=== PATIENT | male | born 1970 | race Caucasian/White ===

== ENCOUNTER 2017-01-03 23:16 | Emergency (ER) | payer MEDICAID, OTHER ==
[~2017-01-03] VITALS: Ht 188 cm; Wt 98.2 kg
[2017-01-03 23:24] VITALS: BP 120/79; PULSE 74; RESP 20; O2SAT 97
[2017-01-03] MEDS ORDERED: Lidocaine 1% 50 mL Inj NERVEBLOCK ONE (23:35)
[2017-01-03] MEDS ORDERED: _oxyCODONE/APAP 5-325 mg Tablet PO PRN (23:35)
[2017-01-03] MEDS ORDERED: Amoxicillin-Clav 875-125 mg Tablet PO ONE (23:35)
[2017-01-03] MEDS ORDERED: Ampicillin-Sulbactam Inj 3,000 MG in 0.9% Sodium Chloride 100 ML IV ONE (23:55)
--- NOTE | 2017-01-04 00:22 | ED.REPORT ---
HPI-Dental/Mouth Prob Date of Service Jan 04, 2017 ED Provider: Sonido Jacinto DO A 46 year old male with a history of left arm blood clot and previous methamphetamine use presents to the ED with mouth pain onset a couple of days ago. The patient also reports swelling to the roof of his mouth. He denies fever , nausea, vomiting, or other symptoms at this time. The patient took Cephalexin at onset and attempted to puncture the swelling last night with a needle, with no relief. 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 Nursing Notes Stated Complaint: DENTAL PAIN Chief Complaint: Dental Nursing Notes Reviewed: Yes Allergies: Coded Allergies: No Known Allergies (Unverified Allergy, Unknown, 01/03/17) General Time Seen by MD: 23:34 Chief Complaint Mouth pain Hx Obtained From: Patient Arrived By: Walk-in Onset Occurred: 2 days ago Symptom Duration: Since onset Quality: Painful Severity: Current: Moderate Severity: Maximum: Moderate Associated with: Denies: Fever Pertinent Negative: Relieved by nothing Recent Healthcare: No recent doctor visit Past Medical History Past Medical History Left arm blood clot Past Surgical History None reported Smoking History Unknown if Ever Smoker Social History Drug Use: In recovery, Meth Ambulatory Status Independent Review of Systems Review of Systems Note: + Swelling to the roof of mouth Constitutional: Denies: Fever Ears / Nose / Throat: Reports: Mouth pain Respiratory: Denies: Non-productive cough, Shortness of breath GI: Denies: Diarrhea, Nausea, Vomiting Complete sys rev & neg: except as marked. Physical Exam Initial Vital Signs Vital Signs (First) Date Time Temp Pulse Resp B/P Pulse Ox O2 Delivery O2 Flow Rate FiO2 01/03/17 23:24 35.9 74 20 120/79 97 Room Air Initial VS: Reviewed Head / Eyes: Atraumatic, Normocephalic Respiratory: No respiratory distress Skin: Warm, Dry, No cyanosis Neurologic: Alert, Oriented, Nonfocal Psychiatric: Mood/affect normal, Behavior normal, Normal thought content ENT: Airway patent, Mucous membranes moist Dental / Gums: Positive: Dental caries present (Diffuse) Large periapical abscess posterior to fractured right central incisor Neck: Supple, Full range of motion General/Constitutional: Awake, Alert, No acute distress Procedures Incision & Drainage Abscess Time: 23:45 Procedure Performed by: ED physician Consent / Setup / Site Prep: Consent from patient, Time-out performed, Hand hygiene observed, Stand sterile technique Location of Abscess: Large periapical abscess posterior to fractured right central incisor Local Anesthesia: Lidocaine 1% Incised Abscess with Scalpel: #11 Pus Drained: Medium, Purulent discharge Irrigation: No Post-Procedure / Complications: Culture obtained, No complications, Condition improved, Tolerated procedure well, Patient stable Re-Eval/Medical Decision Source of Hx: Old records Re-Evaluation/Progress : Time of Eval: 23:45 Patient Status: Condition improved Re-Evaluation/Progress Note: I&D performed. Discussed with patient diagnosis and plan for discharge. Follow-up and return to the ER instructions given. Patient agrees with plan for care and all questions were addressed. Counseled Regarding: Diagnosis, Need for follow-up, When/why to return to ED Discharge & Departure Primary Impression: Dental abscess Disposition: Home Discharge Condition All VS Reviewed: Yes Condition: Improved Patient Instructions: Dental Abscess (ED) Additional Instructions: I recommend that you see a dentist as soon as possible. Your have an impressive dental abscess that we drained. Take Augmentin twice daily for 7 days. Take 1-2 Percocet every 6 hours as needed for pain. Do not drive or drink alcohol or consume acetaminophen will taking the Percocet. I also recommend that you follow up with your primary care physician or the [facility] residency clinic. Do not hesitate to return if any problems or worsening symptoms. Referrals: NOPCP (PCP) [facility] Scribedi Attestation Portions of this note were transcribed by Sofia Cates. I, Dr. Jacinto, personally performed the history, physical exam, and medical decision-making; I reviewed and confirmed the accuracy of the information in the transcribed note. Signed by: Leonel Sweet, 01/04/2017, 01:40 copies to: [facility] Sonido Jacinto DO Jan 04, 2017 00:22 SOFIA CATES Jan 04, 2017 00:25
[2017-01-04] MEDS ORDERED: Sodium Chloride LOK Flush 10 mL Syringe IVFLUSH SCH (00:30)
[2017-01-04 00:42] VITALS: BP 142/88; PULSE 81; RESP 18; O2SAT 100
== END 2017-01-04 00:43 | disposition home or self-care (01) ==
LOC: SED 23:16
DX: K04.7 Periapical abscess without sinus (principal)
CPT/HCPCS: 41800; 96365; 99284; J0295

== ENCOUNTER 2017-02-28 01:08 | Emergency (ER) | payer OTHER ==
[~2017-02-28] VITALS: Ht 188 cm; Wt 95.5 kg
[2017-02-28 01:12] VITALS: BP 133/87; PULSE 81; RESP 16; O2SAT 98
--- NOTE | 2017-02-28 02:37 | ED.REPORT ---
HPI-Dental/Mouth Prob Peds Date of Service February 28, 2017 ED Provider: Dr. Vidal 46 y/o male with no pertinent hx presents to the ED complaining of lower left tooth infection and swelling, 3 days ago. The pt reports his tooth drained last night. He took 3 tablets of Aleve today for pain. The pt is trying to set up an appointment with his dentist. Nursing Notes Stated Complaint: INFECTED GUM/TOOTH Chief Complaint: Dental Nursing Notes Reviewed: Yes Allergies: Coded Allergies: No Known Allergies (Unverified Allergy, Unknown, 01/03/17) General Time Seen by MD: 02:37 Chief Complaint Tooth pain Hx Obtained from: Patient Arrived by: Walk-in Onset Occurred: 3 days ago Symptom Duration: Since onset Location: : Tooth lower L lat incisor Quality: Painful Radiation: : Does not radiate Severity: Current: No pain currently Severity: Maximum: Mild Recent Healthcare: No recent doctor visit Past Medical History Past Medical History none reported Past Surgical History none reported Smoking History Unknown if Ever Smoker Ambulatory Status Ambulatory Status: Independent Review of Systems Reports: Left lower tooth infection and swelling Complete sys rev & neg: except as marked. Physical Exam Initial Vital Signs Vital Signs (First) Date Time Temp Pulse Resp B/P Pulse Ox O2 Delivery O2 Flow Rate FiO2 02/28/17 01:12 36.1 81 16 133/87 98 Room Air Initial VS: Reviewed Head / Eyes: Atraumatic, Normocephalic, PERRL Respiratory: Breath sounds normal, Clear to auscultation, No respiratory distress Cardiovascular: Regular rate & rhythm, Heart sounds normal, Intact distal pulses Abdomen / GI: Soft, Non-tender, No guarding, No rebound, No distention Extremities: Vascular intact, Neuro intact, No swelling, No tenderness Skin: Warm, Dry, No cyanosis Neurologic: Alert, Oriented, Nonfocal ENT: Atraumatic, Mucous membranes moist, Pharynx NL No sublingual swelling. Diffusely pore dentition. Left lower canine is carius socket with swelling. Neck: Atraumatic, Supple, Full range of motion, No adenopathy General / Constitutional: Awake, Alert, Well appearing Minimal facial swelling. Clear voice. Re-Eval/Medical Decision Source of Hx: Old records Re-Evaluation/Progress : Time of Eval: 02:45 Re-Evaluation/Progress Note: Rechecked pt. Discussed diagnosis. Informed the pt of the plan to discharge. Pt understands and agrees with plan. F/U instructions and RTER warning given. All questions addressed. Counseled Regarding: Diagnosis, Need for follow-up, When/why to return to ED Discharge & Departure Primary Impression: Dental abscess Disposition: Home Discharge Condition All VS Reviewed: Yes Patient Instructions: Dental Abscess (ED) Additional Instructions: penicillin 500mg 4 times a day until gone. return to ED for fevers, facial swelling or swelling under tongue. see your dentist guerline Referrals: NOPCP (PCP) Scribe Attestation Portions of this note were transcribed by Mark Tyler. I, , personally performed the history, physical exam and medical decision-making;I reviewed and confirmed the accuracy of the information in the transcribed note. Signed by Leonel Acevedo. 02/28/17 0315 Karthikeyan Vidal MD February 28, 2017 02:37 Mark Tyler February 28, 2017 02:44
[2017-02-28 03:25] VITALS: BP 130/86; PULSE 80; RESP 17; O2SAT 99
[2017-02-28] MEDS ORDERED: _Penicillin VK 500 mg Tablet PO SCH (06:30)
== END 2017-02-28 03:26 | disposition home or self-care (01) ==
LOC: SED 01:08
DX: K04.7 Periapical abscess without sinus (principal)